=== PATIENT | male | born 1985 | race Caucasian/White ===

== ENCOUNTER 2017-04-19 21:02 | Emergency (ER) | payer OTHER ==
[~2017-04-19] VITALS: Ht 185.4 cm; Wt 84.0 kg
== END 2017-04-19 23:06 | disposition left against medical advice (07) ==
LOC: M ED 21:02
DX: R10.9 Unspecified abdominal pain (principal); Z53.21 Procedure and treatment not carried out due to patient leaving prior to being seen by health care provider

== ENCOUNTER 2021-06-07 12:35 | Emergency (ER) | payer OTHER ==
[~2021-06-07] VITALS: Ht 185.4 cm; Wt 81.7 kg
[2021-06-07 12:35] VITALS: BP 110/76
[2021-06-07 15:29] LABS: BASO % 0.2 % (0.0-1.0); HEMATOCRIT 45.3 % (42.0-52.0); HEMOGLOBIN 15.4 g/dl (13.5-17.5); LYMPH # 0.3 10^3/uL (1.5-5.0); LYMPH % 2.3 % (24.0-44.0); MEAN CORPUSCULAR HEMOGLOBIN 30.4 pg (27.0-33.0); MEAN CORPUSCULAR VOLUME 89.5 fl (80.0-96.0); MONO # 0.3 10^3/uL (0.0-0.8); MONO % 2.7 % (2.0-8.0); NEUTROPHILS # 10.9 10^3/uL (1.5-8.5); NEUTROPHILS % 94.5 % (36.0-66.0); PLATELET COUNT, AUTOMATED 264 10^3/uL (150-450); RED BLOOD COUNT 5.06 10^6/uL (4.30-6.10); WHITE BLOOD COUNT 11.5 10^3/uL (4.0-10.0)
[2021-06-07 15:55] LABS: ALT/SGPT 49 U/L (12-78); BILIRUBIN,DIRECT 0.2 MG/DL (0.0-0.2); BILIRUBIN,TOTAL 0.6 MG/DL (0.2-1.0); BLOOD UREA NITROGEN 22 MG/DL (7-18); CALCIUM LEVEL 8.7 MG/DL (8.5-10.1); CARBON DIOXIDE LEVEL 26 MEQ/L (21-32); CHLORIDE LEVEL 105 MEQ/L (98-107); GLOMERULAR FILTRATION RATE > 60.0 (>60); GLUCOSE, FASTING 131 MG/DL (70-100); LIPASE 51 U/L (73-393); POTASSIUM SERUM 4.4 MEQ/L (3.5-5.1); SODIUM LEVEL 137 MEQ/L (136-145); TOTAL PROTEIN 7.2 GM/DL (6.4-8.2)
[2021-06-07] MEDS ORDERED: NS 1,000 ML IV ONE (16:00)
[2021-06-07] MEDS ORDERED: ONDANSETRON 4MG/2ML VIAL IV ONE (16:00)
[2021-06-07] MEDS ORDERED: MORPHINE 4 MG/ML 1ML VIAL/SYRINGE (J2270) IV ONE (16:00)
[2021-06-07] MEDS ORDERED: ISOVUE-370 76% 100ML VIAL As Ordered ONE (16:02)
[2021-06-07] MEDS ORDERED: KETOROLAC 30 MG/ML 1ML VIAL IV ONE (16:15)
--- NOTE | 2021-06-07 16:20 | REP ---
INDICATION: lower abd pain, low back pain. COMPARISON: None. TECHNIQUE: Helical scanning was acquired and 4 mm axial images are re-formatted. Coronal and sagittal MPR images were generated and reviewed. The contrast enhancement dose is 100 mL of intravenous Isovue 370. FINDINGS: Preliminary digital glassworker radiograph demonstrates an unremarkable bowel gas pattern. The lung bases are clear. There is no evidence of pleural effusion or upper abdominal ascites. The liver and the spleen are normal in size homogeneous in texture. No abnormality is noted in the gallbladder or the pancreas. Normal adrenal glands are observed bilaterally. The kidneys enhance symmetrically and are morphologically intact. No hydronephrosis is seen. No intrarenal calculus is observed. No retroperitoneal mass or adenopathy is seen. The there are a few dystrophic calcifications in the prostate. Prostate seminal vesicles and urinary bladder are otherwise unremarkable. No abdominal wall defect is seen. A normal appendix is visible in the right lower mid pelvis. Small and large bowel loops are unremarkable in the abdomen and pelvis. There is no evidence of free intraperitoneal air or fluid. Bone window settings show no bony destructive lesion. There is a unilateral left-sided L5 spondylolysis. There is no spondylolisthesis. IMPRESSION: No acute abdominal or pelvic abnormality seen. Normal appendix noted. Unilateral left-sided L5 spondylolysis without spondylolisthesis. <Electronically signed by Valdemar Zuniga > 06/07/21 [id number]
[2021-06-07] MEDS ORDERED: ONDA4TAB6 PO (17:47)
== END 2021-06-07 18:08 | disposition home or self-care (01) ==
LOC: M ED 12:35
DX: K52.9 Noninfective gastroenteritis and colitis, unspecified (principal); R11.2 Nausea with vomiting, unspecified; Z20.822 Contact with and (suspected) exposure to COVID-19; M43.06 Spondylolysis, lumbar region
CPT/HCPCS: 74177; 80048; 80076; 81001; 83690; 85025; 96361; 96374; 96375; 99282; J1885; J2405; Q9967; U0002